=== PATIENT | female | born 1945 | race Caucasian/White ===

== ENCOUNTER 2018-05-07 07:05 | Day surgery (SDC) | payer MEDICARE, OTHER, SELFPAY ==
--- NOTE | 2018-05-07 | PATH_ITS ---
[facility] Accession Number: [id number] . 01 Material submitted: . PART A: GE JUNCTION BIOPSIES PART B: ANTRAL BIOPSIES PART C: RIGHT COLON POLYPS X3 PART D: TRANSVERSE COLON POLYP . 02 Diagnosis: A. Gastroesophageal Junction, Biopsies: Squamocolumnar junctional mucosa with specialized intestinal metaplasia, consistent with Sanchez's esophagus. Negative for dysplasia and malignancy. . B. Stomach, Antrum, Biopsies: Antral mucosa with mild chronic gastritis. No evidence of Helicobacter on H/E stain. Negative for intestinal metaplasia. Negative for dysplasia and malignancy. . C. Right Colon, Polyps x3, Biopsies: Tubular adenoma in three of five fragments. . D. Transverse Colon, Polyp, Biopsy: Tubular adenoma. [facility]/05/08/2018 . 02 Electronically signed: . Casi Tuttle MD, Pathologist NPI- [id number] . 01 Gross description: . Received four formalin-filled containers, each labeled with the patient's name: . A. In a container labeled GE junction, are multiple 0.1-0.4 cm portions of tissue, entirely submitted in cassette A. B. In a container labeled antral, are four 0.1-0.4 cm portions of tissue, entirely submitted in cassette B. C. In a container labeled right colon polyp, are multiple less than 0.1 cm to 0.3 cm portions of tissue, entirely submitted in cassette C. D. In a container labeled transverse colon polyp, are two less than 0.1 cm to 0.3 cm portions of tissue, entirely submitted in cassette D. ([id number]) /FRR . 02 Pathologist provided ICD-10: K22.70, D12.6, D12.3 . 02 CPT . 474099, 584821, 261642, 631594 Performed at: 01 [facility] [address] [id number] MD Maximus Tim MD Phone: [phone] Performed at: 02 [facility] [id number] [place], [place] [id number] MD Casi Tuttle MD Phone: [phone]
[2018-05-07 07:45] VITALS: BP 146/85; PULSE 87; RESP 15; TEMP 36; O2SAT 94; BMI 64.2
--- NOTE | 2018-05-07 10:43 | PM.HP.1 ---
History of Present Illness Date Patient Seen: 05/07/18 Time Patient Seen: 10:43 Chief complaint: [id number] Narrative: 73-year-old female with history of Sanchez's esophagus and personal history of colon polyps whose last endoscopic surveillance for both entities was approximately 4 or 5 years ago. She presented recently in January 2018 to my associate, Dr. Kohler, for evaluation. On further history patient denies any significant dysphagia. She continues to have intermittent reflux symptoms which is relatively well controlled with omeprazole. No recent change in bowel habits. No melena, hematochezia, bright red blood per rectum. Patient History Medical History IBS (irritable bowel syndrome) (Chronic) Surgical History History of appendectomy (Resolved ~2003) Family History Mother Hypertension Gallstones Stroke Father Heart disease Diabetes mellitus Social History household members: none Smoking Status: Never smoker alcohol intake: never substance use type: does not use Family & Social History Family History Mother Hypertension Gallstones Stroke Father Heart disease Diabetes mellitus Social History: household members none Tobacco & Substance use: Smoking Status Never smoker alcohol intake never Meds Home Medications Medication Instructions Recorded Confirmed Type aspirin [Aspir-81] 81 mg PO DAILY #0 06/05/09 05/07/18 History cholecalciferol (vitamin D3) 3,000 5,000 unit PO DAILY 02/02/18 05/07/18 History unit tablet omeprazole magnesium 10 mg oral 20 mg PO DAILY 02/02/18 05/07/18 History suspension,delayed release vitamin K2 40 mcg tablet 100 mcg PO DAILY 02/02/18 05/07/18 History naproxen sodium [Aleve] 220 mg PO BID PRN 05/07/18 05/07/18 History Allergies Allergy/AdvReac Type Severity Reaction Status Date / Time No Known Drug Allergies Allergy Verified 05/07/18 07:33 Review of Systems Review of Systems All systems reviewed & are unremarkable except as noted in HPI and below Exam Vital Signs (past 8 hours): - 05/07/18 07:45 Temperature 96.8 F L Pulse Rate 87 Respiratory Rate 15 Blood Pressure 146/85 H Pulse Oximetry 94 Oxygen Delivery Method Room Air Narrative Exam Narrative: Well-nourished well-developed female in no acute distress. Alert oriented x3. Sclera nonicteric Regular rate and rhythm No wheezes Abdomen soft, nondistended, nontender Extremities show no clubbing or cyanosis Objective Labs Labs: No recent laboratory radiographic studies for review Assessment & Plan Assessment & Plan narrative: 73-year-old female with personal history of colon polyps and Sanchez's esophagus requiring surveillance for such. I reiterated recommendation for EGD and colonoscopy. Technical details of the procedures were reviewed. Risks, benefits, alternatives were explained. Risks including but not limited to sedation, aspiration, bleeding, pain, missed lesion, incomplete colonoscopy, need for further radiographic studies, nondiagnostic study, esophageal perforation, gastric perforation, duodenal perforation, colonic perforation, need for major thoracic surgery, need for major abdominal surgery, and all attendant risks of major surgery were explained in detail. All questions were answered to her satisfaction, and she voiced understanding. Consent was updated and placed on the chart. Proceed today as planned. Patient has agreed to proceed under my care since Dr. Kohler is currently in emergency surgery.
[2018-05-07] MEDS: TETRACAINE/BENZOCAINE/BUTAMBEN (CETACAINE) BOTTLE 1 SPRAY TOP (10:45)
[2018-05-07] MEDS: LIDOCAINE 4% SOLN 50 ML 20 ML TOP (10:45)
--- NOTE | 2018-05-07 10:45 | SUR.OPER ---
pt fernanda is incorrect. pt states they weigh 175lb. chart reads 175 kilos.
--- NOTE | 2018-05-07 10:46 | PM.PREOP ---
Pre-operative Note Interval Note History & Physical reviewed/Exam performed by Physician: Yes Changes to H&P: No H&P completed within 30 days and has changed as indicated here:: Patient seen and examined today. History physical examination updated and placed on the chart. No significant changes compared to the document of January 2018. Proceed today with EGD and colonoscopy as planned. ASA Class (for procedural sedation): II
[2018-05-07] MEDS: fentaNYL 250 MCG/5 ML INJ IV (11:08)
[2018-05-07] MEDS: MIDAZOLAM 5 MG/5 ML VIAL IV (11:08)
[2018-05-07 11:24] VITALS: BP 140/81; PULSE 74; RESP 10; TEMP 37.1; O2SAT 94
--- NOTE | 2018-05-07 11:26 | P.OP.ENDO_ITS ---
Operative Date/Time/Diagnoses Date of procedure: 05/07/18 Time of procedure: 11:23 Pre-op diagnosis: Personal history of Sanchez's esophagus and colon polyps Post-op diagnosis: other (Distal esophagitis suspicious for Sanchez's esophagus and multiple colon polyps) Procedure & Clinicians Study performed: 1. Sedation per surgeon 2. Colonoscopy with cold forceps polypectomies 3. Esophagogastroduodenoscopy with cold forceps biopsies Same procedure as scheduled: Yes Indications: 73-year-old female with personal history of colon polyps and Sanchez's esophagus. Last endoscopic surveillance was approximately 5 years ago. She returns now for EGD and colonoscopy. Surgeon: Jakub Sapp Procedure Notes SCOAP/Timeout: Yes Procedure in detail: After obtaining informed consent, the patient was brought to the GI suite and placed in the left lateral decubitus position on the examination table. After placement of appropriate monitors, the patient was given incremental doses of Versed and Fentanyl until an appropriate level of sedation was achieved. A time out was held per SCOAP protocol. A bite block was gently placed between the patient's teeth. The endoscope was lubricated and then passed into the patient's posterior oropharynx. The esophagus was cannulated under direct vision and the scope was passed to the second portion of the duodenum without difficulty. The scope was then withdrawn with careful examination of all areas of the upper GI tract and mucosa. In the stomach, the instrument was retroflexed and the GE junction examined. The scope was straightened and the procedure continued with exami nation of the remainder of the upper GI tract. Findings are noted above. Air was aspirated from the stomach and the endoscope gently removed from the esophagus. Table was turned 180? for colonoscopy. A digital rectal examination was performed and did not reveal any masses or obstructing lesions. The colonoscope was gently passed into the patient's anus and the entire colon navigated to the level of the cecum with minimal difficulty. Once in the cecum, the scope was withdrawn being sure to go before and beyond all mucosal folds and prominences and get an excellent examination. The findings are noted above. At the level of the rectal vault, the scope was retroflexed and the internal anal canal was examined. The scope was straightened and air aspirated from the colon. The instrument was removed from the patient's body and the procedure was concluded. The patient was allowed to awaken from sedation without difficulty and taken to the post-anesthesia care unit in good condition. Scope withdrawal time: 12:42 min Sedation minutes: 34 Findings: Sanchez's esophagus, diverticulosis, gastritis and polyp Specimen(s): other (1. Antral biopsies 2. Gastroesophageal junction biopsies 3. Right colon polyps x34. Transverse colon polyp) Complications: none Recommendations: Colonscopy in 5 years, High fiber diet, No ASA/NSAIDS, EGD in 3 years, Continue medication(s) and Will call with biopsy results Plan for aftercare: 1. Discharge home Follow up: as needed Disposition: PACU
[2018-05-07 11:30] VITALS: BP 126/83; PULSE 78; RESP 10; O2SAT 93
[2018-05-07 11:36] VITALS: BP 138/80; PULSE 70; RESP 10; O2SAT 93
[2018-05-07 11:40] VITALS: BP 142/83; PULSE 72; RESP 12; O2SAT 93
[2018-05-07 11:47] VITALS: BP 132/78; PULSE 64; RESP 16; TEMP 36.6; O2SAT 93
--- NOTE | 2018-05-07 11:58 | SUR.PHASEII ---
Asking to wait briefly for discharge due to still feeling drowsy. Our not reversing meds is explained along with some drowsiness on discharge acceptable and usual.
== END 2018-05-07 12:27 | disposition home or self-care (01) ==
PROVIDERS: Family Provider Family Medicine; PCP Family Medicine; Visit Provider Surgery
PROC: 0DJ08ZZ Inspection of Upper Intestinal Tract, Via Natural or Artificial Opening Endoscopic (ICD-10-PCS; CPT 43235; principal; 2018-05-07 08:45)
PROC: 0DJD8ZZ Inspection of Lower Intestinal Tract, Via Natural or Artificial Opening Endoscopic (ICD-10-PCS; CPT 45378; 2018-05-07 08:45)
DX: Z86.010 Personal history of colon polyps (principal); K22.70 Barrett's esophagus without dysplasia; K57.30 Diverticulosis of large intestine without perforation or abscess without bleeding; K29.70 Gastritis, unspecified, without bleeding; D12.6 Benign neoplasm of colon, unspecified; D12.3 Benign neoplasm of transverse colon
CPT/HCPCS: 45380; 43239; 88305; 99152; 99153; J2250; J3010

== ENCOUNTER → 2018-08-13 08:49 | Outpatient (CLI) | payer MEDICARE, OTHER, SELFPAY ==
--- NOTE | 2018-08-13 | DI.RAD.S_ITS ---
PROCEDURE: XR HIP W PEL IF DONE LT 2V INDICATIONS: LEFT HIP PAIN TECHNIQUE: 2 views of the hip were acquired. COMPARISON: [facility], CR, [id number] W PEL IF PERFORMED, 02/09/2016, 11:05. [facility], CR, [id number] W PEL IF PERFORMED, 05/01/2015, 11:21. FINDINGS: Bones: No fractures or dislocations. No suspicious bony lesions. The visualized pelvic ring appears intact. There has been mild interval worsening of a previously present pattern of moderate degenerative hip joint osteoarthritis on the left. No trauma is found. Soft tissues: No suspicious soft tissue calcifications or masses. IMPRESSION: Mild interval worsening of previously present hip joint osteoarthritis on the left from 2014 and 2017. No trauma seen. Overall the degree of hip joint osteoarthritis now is moderate. Dictated by: Mando Oliver M.D. on 08/13/2018 at 9:39 Approved by: Mando Oliver M.D. on 08/13/2018 at 9:39
--- NOTE | 2018-08-13 | DI.MG.S_ITS ---
BILATERAL DIGITAL SCREENING MAMMOGRAM 3D/2D WITH CAD: 08/13/2018 CLINICAL: Routine screening. Comparison is made to exams dated: 05/15/2015 mammogram - [facility], 06/25/2011 mammogram, and 07/06/2009 mammogram - [facility]. There are scattered fibroglandular elements in both breasts. Current study was also evaluated with a Computer Aided Detection (CAD) system. No significant masses, calcifications, or other findings are seen in either breast. There has been no significant interval change. IMPRESSION: NEGATIVE There is no mammographic evidence of malignancy. A 1 year screening mammogram is recommended. This exam was interpreted at Station ID: [id number]. NOTE: For mammograms, a report in lay terms will be sent to the patient. Approximately 15% of breast malignancies will not be visualized mammographically. In the management of a palpable breast mass, a negative mammogram must not discourage biopsy of a clinically suspicious lesion. Electronically Signed By: Vladislav gottlieb/louise:08/13/2018 14:22:10 letter sent: Normal Exam ACR BI-RADS Category 1: Negative [id number]
== END ==
PROVIDERS: Family Provider Family Medicine; PCP Family Medicine; Visit Provider Family Medicine
DX: Z12.31 Encounter for screening mammogram for malignant neoplasm of breast (principal); M25.552 Pain in left hip; M16.12 Unilateral primary osteoarthritis, left hip
CPT/HCPCS: 73502; 77063; 77067

== ENCOUNTER → 2022-05-10 16:34 | Outpatient (CLI) | payer MEDICARE, SELFPAY | PROVIDERS: Family Provider Family Medicine; PCP Family Medicine; Visit Provider Registered Nurse | DX: R30.0 Dysuria (principal) | CPT/HCPCS: 87086 ==